=== PATIENT | male | born 1980 | race Caucasian/White ===

== ENCOUNTER 2022-10-14 10:46 | Emergency (ER) | payer MEDICAID ==
[~2022-10-14] VITALS: Ht 170.2 cm; Wt 70.0 kg
[2022-10-14 10:48] VITALS: BP 120/70
[2022-10-14 12:39] LABS: CLARITY URINE CLEAR (CLEAR); COLOR URINE YELLOW (YELLOW); KETONES URINE TRACE (NEGATIVE); LEUKOCYTE ESTERASE URINE 2+ (NEGATIVE); NITRITE URINE NEGATIVE (NEGATIVE); OCCULT BLOOD URINE 3+ (NEGATIVE); PROTEIN URINE TRACE (NEGATIVE); SPECIFIC GRAVITY URINE 1.018 (1.005-1.030); UROBILINOGEN URINE 0.2 E.U./dL (0.2-1.0)
[2022-10-14] MEDS ORDERED: CEFP200T13 MT (13:30)
[2022-10-14] MEDS ORDERED: ACET-2708 MT (13:31)
== END 2022-10-14 14:00 | disposition home or self-care (01) ==
LOC: ER 10:58
DX: N39.0 Urinary tract infection, site not specified (principal)
CPT/HCPCS: 81003; 99283; A4315

== ENCOUNTER 2024-11-01 00:15 | Emergency (ER) | payer MEDICARE, MEDICAID ==
[~2024-11-01] VITALS: Ht 170.2 cm; Wt 70.0 kg
[~2024-11-01 00:15] MED LIST: BACL20TA PO; HYDR-4350 MT; LACT10PA5 PO
[2024-11-01 00:40] VITALS: O2SAT 98
[2024-11-01 10:22] LABS: CLARITY URINE TURBID (CLEAR); COLOR URINE DARK YELLOW (YELLOW); GLUCOSE URINE NEGATIVE (NEGATIVE); KETONES URINE 1+ (NEGATIVE); LEUKOCYTE ESTERASE URINE 3+ (NEGATIVE); NITRITE URINE POSITIVE (NEGATIVE); OCCULT BLOOD URINE 1+ (NEGATIVE); PH URINE 8.5 (4.5-8.0); PROTEIN URINE 3+ (NEGATIVE); SPECIFIC GRAVITY URINE 1.021 (1.005-1.030)
[2024-11-01] MEDS ORDERED: SULF1TAB48 MT (10:28)
[2024-11-01 11:25] VITALS: BP 108/61; PULSE 103; RESP 18; TEMP 37; O2SAT 97
[2024-11-01 11:33] LABS: TRIPLE PHOSPHATE CRYSTAL URINE 3+ /lpf
[2024-11-01 11:34] LABS: BACTERIA URINE 4+; SQUAMOUS EPITHELIAL CELL URINE NONE SEEN /lpf (RARE/1+)
[2024-11-01 11:37] LABS: WBC URINE 0-2 /hpf (0-2)
== END 2024-11-01 12:40 | disposition home or self-care (01) ==
LOC: ER 00:15
DX: N39.0 Urinary tract infection, site not specified (principal); Z46.6 Encounter for fitting and adjustment of urinary device; G82.20 Paraplegia, unspecified; F10.90 Alcohol use, unspecified, uncomplicated; F12.90 Cannabis use, unspecified, uncomplicated; F14.90 Cocaine use, unspecified, uncomplicated; I10 Essential (primary) hypertension; Z79.899 Other long term (current) drug therapy; Y90.9 Presence of alcohol in blood, level not specified
CPT/HCPCS: 51702; 81003; 99284

== ENCOUNTER 2025-02-24 20:59 | Emergency (ER) | payer MEDICARE, MEDICAID ==
[~2025-02-24] VITALS: Ht 172.7 cm; Wt 59.0 kg
[~2025-02-24 20:59] MED LIST changes: +DOCU-138 MT; +GABA300S4 PO; +HYDR-4009 MT; +MELA2.5T16 MT; +MULT-622 MT; +POLY17PO3 MT
[2025-02-24 21:06] VITALS: BP 127/78; PULSE 118; RESP 18; TEMP 36.5; O2SAT 99
[2025-02-25] MEDS ORDERED: PERM60CR4 TP (01:00)
== END 2025-02-25 03:20 | disposition home or self-care (01) ==
LOC: ER 20:59
DX: T83.9XXA Unspecified complication of genitourinary prosthetic device, implant and graft, initial encounter (principal); B85.2 Pediculosis, unspecified; G82.20 Paraplegia, unspecified; Z59.00 Homelessness unspecified; Z79.899 Other long term (current) drug therapy; Z99.3 Dependence on wheelchair
CPT/HCPCS: 51702; 99284

== ENCOUNTER 2025-03-01 02:35 | Emergency (ER) | payer MEDICARE, MEDICAID ==
[~2025-03-01] VITALS: Ht 170.2 cm; Wt 64.0 kg
[~2025-03-01 02:35] MED LIST changes: +PERM60CR4 TP
[2025-03-01 02:37] VITALS: TEMP 37.1; O2SAT 99
[2025-03-01] MEDS: ACETAMINOPHEN 500MG TABLET PO ONE (03:05)
[2025-03-01] MEDS ORDERED: BENZ100C86 MT (04:05)
[2025-03-01] MEDS ORDERED: ALBU18HF2 IH (04:10)
[2025-03-01] MEDS: LIDOCAINE 5% PATCH TOP SCH (04:50)
[2025-03-01 06:55] VITALS: BP 118/79; PULSE 76; RESP 17; O2SAT 99
[2025-03-01] MEDS ORDERED: LIDOCAINE 5% PATCH TOP SCH (09:00)
== END 2025-03-01 07:13 | disposition home or self-care (01) ==
LOC: ER 02:35
DX: J06.9 Acute upper respiratory infection, unspecified (principal); B97.89 Other viral agents as the cause of diseases classified elsewhere; F15.90 Other stimulant use, unspecified, uncomplicated; Z79.899 Other long term (current) drug therapy
CPT/HCPCS: 71045; 99283